=== PATIENT | female | born 1985 | race American Indian/Alaskan Native ===

== ENCOUNTER 2016-08-09 21:17 | Emergency (ER) | payer MEDICAID ==
--- NOTE | 2016-08-09 21:25 | EDM.PDOC ---
ED HPI LOWER BACK PAIN/INJURY - General Chief Complaint: Back Pain or Injury Stated Complaint: Back and Hip Pain Time Seen by Provider: 08/09/16 21:18 Source of Information: Reports: Patient, RN History Limitations: Reports: No limitations - History of Present Illness INITIAL COMMENTS - FREE TEXT/NARRATIVE: Patient presents the emergency room at [facility] complaining of low back pain and bilateral hip pain. The patient states her symptoms began 2 days ago. The patient denies any injuries/trauma. The patient denies any recent surgeries. The patient states she has been having irregular periods. The patient denies any UTI symptoms. The patient does not have any significant lower back history. The patient states that both her legs will go numb at times. Patient denies any significant trouble with ambulation. The patient states the pain is constant no matter what position she is in. The patient states her low back pain begins around T9 extending to S1. Patient denies any true sciatic pain. Symptom Onset Date: 08/07/16 Timing/Duration: Reports: Getting worse Location: Reports: lower, midline, radiating pain Quality: Reports: Sharp, Throbbing Severity: moderate Improves with: Reports: Rest Worsens with: Reports: Movement Context: Denies: lifting, bending, fall, trauma Associated Symptoms: Reports: Denies symptoms - Related Data Allergies/ADRs: Allergies Allergy/AdvReac Type Severity Reaction Status Date / Time codeine Allergy Nausea and Verified 08/09/16 22:35 Vomiting Home Meds: Home Meds hydrOXYzine Pamoate [Vistaril] 1 tab PO ASDIRECTED PRN 06/14/16 [History] buPROPion HCl [Wellbutrin Xl] 300 mg PO DAILY 08/09/16 [History] Past Medical History HEENT History: Reports: Other (see below) Other HEENT History: Recent influenza Respiratory History: Reports: Other (see below) Other Respiratory History: Recent Influenza A Gastrointestinal History: Reports: Chronic constipation Psychiatric History: Reports: Suicide attempt Endocrine/Metabolic History: Reports: Obesity/BMI 30+ Dermatologic History: Reports: Other (see below) Other Dermatologic History: Sores, boils treated with antibiotics. Social & Family History - Family History Family Medical History: Noncontributory - Tobacco Use Smoking Status *Q: Current Every Day Smoker Years of Tobacco use: 15 Packs/Tins Daily: 0.3 Used Tobacco, but Quit: Yes Month Tobacco Last Used: march? 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 Denies: Dizziness, Headache, Paresthesia, Tingling ED EXAM,LOWER BACK PAIN/INJURY - Physical Exam Exam: See Below Exam Limited By: No limitations General Appearance: alert, no apparent distress Respiratory/Chest: no respiratory distress, lungs clear, normal breath sounds Cardiovascular: regular rate, rhythm GI/Abdominal: normal bowel sounds, soft, non tender Back Exam: normal inspection, decreased range of motion, muscle spasm, paraspinal tenderness Extremities: limited range of motion (due to pain) Neurological: alert, normal reflexes, oriented x 3 Skin Exam: Warm, Dry, Intact, Normal color, No rash Course - Vital Signs Last Recorded V/S: Last Vital Signs Temp 36.2 C 08/09/16 21:45 Pulse 75 08/09/16 21:45 Resp 16 08/09/16 21:45 BP 142/77 H 08/09/16 21:45 Pulse Ox 97 08/09/16 21:45 - Orders/Labs/Meds Orders: Active Orders 24 hr Category Date Time Status Lumbar Spine wo Cont [CT] Stat Exams 08/09/16 22:04 Taken Pelvis wo Cont [CT] Stat Exams 08/09/16 22:04 Taken CARBOXY-THC BY GC/MS Stat Lab 08/09/16 21:51 Received Cyclobenzaprine [Take Home: Cyclobenzaprine 10 MG, 4 Med 08/09/16 23:21 Once Tab Pack] 1 packet PO ONETIME ONE Sodium Chloride 0.9% [Saline Flush] Med 08/09/16 21:48 Active 10 ml FLUSH ASDIRECTED PRN Peripheral IV Insertion Adult [OM.PC] Routine Oth 08/09/16 21:48 Ordered Medication Orders Sodium Chloride (Saline Flush) 10 ml FLUSH ASDIRECTED PRN PRN Reason: Keep Vein Open Labs: Laboratory Tests 08/09/16 08/09/16 08/09/16 Range/Units 21:51 21:51 21:51 Urine Color Yellow (YELLOW) Urine Appearance Clear (CLEAR) Urine pH 7.0 (5.0-8.0) Ur Specific Hershey 1.025 Urine Protein 100 H (NEGATIVE) mg/dL Urine Glucose (UA) Negative (NEGATIVE) mg/dL Urine Ketones Negative (NEGATIVE) mg/dL Urine Occult Blood Trace-intact H (NEGATIVE) Urine Nitrite Negative (NEGATIVE) Urine Bilirubin Negative (NEGATIVE) Urine Urobilinogen 1.0 (0.2) EU/dL Ur Leukocyte Esterase Small H (NEGATIVE) Urine RBC 5-10 H (NOT SEEN) /HPF Urine WBC 0-5 (NOT SEEN) /HPF Ur Squamous Epith Cells Moderate H (NEGATIVE) /HPF Urine Bacteria Moderate H (NEGATIVE) /HPF Urine Mucus Not seen (NEGATIVE) /LPF Urine HCG, Qual Negative (NEGATIVE) Urine Opiates Screen Negative (NEGATIVE) Ur Buprenorphine Scrn Negative (NEGATIVE) Ur Oxycodone Screen Negative (NEGATIVE) Urine Methadone Screen Negative (NEGATIVE) Ur Barbiturates Screen Negative (NEGATIVE) Ur Tricyclics Screen Negative (NEGATIVE) Ur Amphetamine Screen Negative (NEGATIVE) U Methamphetamines Scrn Negative (NEGATIVE) Urine MDMA Screen Negative (NEGATIVE) U Benzodiazepines Scrn Negative (NEGATIVE) U Cocaine Metab Screen Negative (NEGATIVE) U Marijuana (THC) Screen Positive H (NEGATIVE) Meds: Medications Generic Name Dose Route Start Last Admin Trade Name Freq PRN Reason Stop Dose Admin Sodium Chloride 10 ml 08/09/16 21:48 Saline Flush FLUSH ASDIRECTED PRN Keep Vein Open Discontinued Medications Generic Name Dose Route Start Last Admin Trade Name Freq PRN Reason Stop Dose Admin Ketorolac Tromethamine 30 mg 08/09/16 22:14 08/09/16 22:44 Toradol IVPUSH 08/09/16 22:15 30 mg ONETIME ONE Administration Ondansetron HCl 4 mg 08/09/16 22:46 08/09/16 22:59 Zofran IVPUSH 08/09/16 22:47 4 mg ONETIME ONE Administration Orphenadrine Citrate 60 mg 08/09/16 22:15 08/09/16 22:45 Norflex IM 08/09/16 22:16 60 mg Q12H ONE Administration - Radiology Interpretation Free Text/Narrative:: CT of Lumbar Spine is normal - see scanned report CT of Pelvis does not show any fracture or dislocation; probable benign or functional ovarian cyst on the left; Normal appearing appendix CT Results Date: 08/09/16 CT Results Time: 22:49 Departure - Departure Time of Disposition: 23:21 Disposition: Home, Self-Care 01 Condition: good Clinical Impression: Muscle spasm of back Instructions: Muscle Strain, [id number], Back Injury Prevention, [id number] , Muscle Cramps and Spasms, [id number] Referrals: Scar Geiger PRINTING MACHINE OPERATOR [Primary Care Provider] - Forms: ED Department Discharge Additional Instructions: 1. Stay well hydrated and rest 2. Take muscle relaxants only as needed; they can make you drowsy 3. May alternate Tylenol/Advil as needed 4. Will schedule Physical therapy at [facility] - Problem List Review Problem List Initiated/Reviewed/Updated: Yes - My Orders Last 24 Hours: My Active Orders 08/09/16 21:48 Sodium Chloride 0.9% [Saline Flush] 10 ml FLUSH ASDIRECTED PRN Peripheral IV Insertion Adult [OM.PC] Routine 08/09/16 21:51 CARBOXY-THC BY GC/MS Stat 08/09/16 22:04 Lumbar Spine wo Cont [CT] Stat Pelvis wo Cont [CT] Stat 08/09/16 23:21 Cyclobenzaprine [Take Home: Cyclobenzaprine 10 MG, 4 Tab Pack] 1 packet PO ONETIME ONE - Assessment/Plan Last 24 Hours: My Active Orders 08/09/16 21:48 Sodium Chloride 0.9% [Saline Flush] 10 ml FLUSH ASDIRECTED PRN Peripheral IV Insertion Adult [OM.PC] Routine 08/09/16 21:51 CARBOXY-THC BY GC/MS Stat 08/09/16 22:04 Lumbar Spine wo Cont [CT] Stat Pelvis wo Cont [CT] Stat 08/09/16 23:21 Cyclobenzaprine [Take Home: Cyclobenzaprine 10 MG, 4 Tab Pack] 1 packet PO ONETIME ONE
[2016-08-09] MEDS ORDERED: Sodium Chloride 0.9% 10 ML Syringe FLUSH PRN (21:48)
[2016-08-09] MEDS ORDERED: Ketorolac 30 MG/ML SDV IVPUSH ONE (22:14)
[2016-08-09] MEDS ORDERED: Ondansetron 4 MG/2 ML SDV IVPUSH ONE (22:46)
[2016-08-09 22:52] VITALS: BP 142/77
[2016-08-09] MEDS ORDERED: Take Home: Cyclobenzaprine 10 MG Tab, 4 Tab Pack PO ONE (23:21)
== END 2016-08-09 23:38 | disposition home or self-care (01) ==
LOC: VM.ED 21:17
DX: M62.830 Muscle spasm of back (principal); E66.9 Obesity, unspecified; F17.210 Nicotine dependence, cigarettes, uncomplicated; Z88.5 Allergy status to narcotic agent; Z79.899 Other long term (current) drug therapy
CPT/HCPCS: 72131; 72192; 80305; 80349; 81001; 81025; 96372; 96374; 96375; 99284; A9270; J1885; J2360; J2405

== ENCOUNTER 2016-12-06 23:30 | Emergency (ER) | payer MEDICAID ==
[2016-12-06 23:38] VITALS: BP 143/86
[2016-12-06] MEDS ORDERED: Amoxicillin 500 MG Cap PO ONE (23:39)
--- NOTE | 2016-12-06 23:47 | EDM.PDOC ---
ED HPI GENERAL MEDICAL PROBLEM - General Chief Complaint: General Stated Complaint: RIGHT EAR PLUGGED Time Seen by Provider: 12/06/16 23:38 Source of Information: Reports: Patient History Limitations: Reports: No Limitations - History of Present Illness INITIAL COMMENTS - FREE TEXT/NARRATIVE: Astrid reports having a cough and sinus congestion for two weeks. Was seen at the clinic over the weekend and not given any medications. She is here tonight with complaints of not being able to hear out of her right ear. She reports this started two days ago. Still with cough and nasal congestion. She denies smoking every day but does smoke on occasion. She is 16 weeks . She denies fever, SOB, chest pain, no nausea, vomiting. No ear pain. Having regular voiding and bowel habits. No complaints with . Is tired. Onset: Gradual Duration: Getting Worse Location: Reports: Face, Other (right ear) Quality: Reports: Pressure Severity: Moderate Associated Symptoms: Reports: Cough, cough w sputum - Related Data Allergies Allergy/AdvReac Type Severity Reaction Status Date / Time codeine Allergy Nausea and Verified 12/06/16 23:39 Vomiting Home Meds: Home Meds hydrOXYzine Pamoate [Vistaril] 1 tab PO ASDIRECTED PRN 06/14/16 [History] buPROPion HCl [Wellbutrin Xl] 300 mg PO DAILY 08/09/16 [History] Past Medical History HEENT History: Reports: Other (See Below) Other HEENT History: Recent influenza Respiratory History: Reports: Other (See Below) Other Respiratory History: Recent Influenza A Gastrointestinal History: Reports: Chronic Constipation Psychiatric History: Reports: Suicide Attempt Endocrine/Metabolic History: Reports: Obesity/BMI 30+ Dermatologic History: Reports: Other (See Below) Other Dermatologic History: Sores, boils treated with antibiotics. Social & Family History - Family History Family Medical History: Noncontributory - Tobacco Use Smoking Status *Q: Current Every Day Smoker Years of Tobacco use: 15 Packs/Tins Daily: 0.3 Used Tobacco, but Quit: Yes Month Tobacco Last Used: march? Second Hand Smoke Exposure: Yes - Caffeine Use Caffeine Use: Reports: Soda Other Caffeine Use: daily - Alcohol Use Days Per Week of Alcohol Use: 0 Number of Drinks Per Day: 0 Total Drinks Per Week: 0 - Recreational Drug Use Recreational Drug Use: Yes Drug Use in Last 12 Months: Yes Recreational Drug Type: Reports: Marijuana/Hashish Recreational Drug Use Frequency: Daily - Living Situation & Occupation Occupation: Employed ED ROS GENERAL - Review of Systems Review Of Systems: See Below Constitutional: Reports: No Symptoms, Other (tired) HEENT: Reports: Throat Pain, Other (can't hear out of right ear) Respiratory: Reports: Cough, Sputum Cardiovascular: Reports: No Symptoms Endocrine: Reports: No Symptoms GI/Abdominal: Reports: No Symptoms : Reports: No Symptoms Musculoskeletal: Reports: Neck Pain Skin: Reports: No Symptoms Neurological: Reports: No Symptoms Psychiatric: Reports: No Symptoms Hematologic/Lymphatic: Reports: No Symptoms Immunologic: Reports: No Symptoms ED EXAM, GENERAL - Physical Exam Exam: See Below Exam Limited By: No Limitations General Appearance: Alert, WD/WN, No Apparent Distress Eye Exam: Bilateral Eye: EOMI, PERRL Ears: Hearing Loss (right ear). No: Normal TMs Ear Exam: Right Ear: Erythema, Swelling, Other (fluid posterior to TM), Left Ear : TM normal Throat/Mouth: Normal Inspection, Normal Oropharynx Head: Atraumatic, Facial Tenderness, Sinus Tenderness Neck: Lymphadenopathy (L), Lymphadenopathy (R), Tender Lateral Respiratory/Chest: No Respiratory Distress, Lungs Clear, Normal Breath Sounds, No Accessory Muscle Use Cardiovascular: Normal Peripheral Pulses, Regular Rate, Rhythm, No Murmur GI/Abdominal: Normal Bowel Sounds, Soft, Non-Tender Extremities: Normal Inspection, Normal Range of Motion, Non-Tender, No Pedal Edema, Normal Capillary Refill Neurological: Alert, Oriented, CN II-XII Intact, Normal Cognition, Normal Gait, Normal Reflexes, No Motor/Sensory Deficits Psychiatric: Normal Affect, Normal Mood Skin Exam: Warm, Dry, Intact, Normal Color, No Rash Lymphatic: Adenopathy (bilateral cervical) Course - Vital Signs Last Recorded V/S: Last Vital Signs Temp 35.9 C 12/06/16 23:33 Pulse 80 12/06/16 23:33 Resp 18 12/06/16 23:33 BP 143/86 H 12/06/16 23:33 Pulse Ox 98 12/06/16 23:33 - Re-Assessments/Exams Free Text/Narrative Re-Assessment/Exam: 12/06/16 23:56 extended respiratory illness extending into right ear with fluid causing lowered hearing. Amoxicillin prescribed. Recommended Zyrtec for 2nd generation antihistamine for relative safety profile while she is . Departure - Departure Time of Disposition: 23:58 Disposition: Home, Self-Care 01 Condition: Good Clinical Impression: Bronchitis, Cough in adult, Otitis media of right ear - Discharge Information Instructions: Smoking Cessation, Tips for Success, [id number], Serous Otitis Media Forms: ED Department Discharge Additional Instructions: Stay well hydrated. You can take over the counter Zyrtec to help with the fluid behind your ears. It may take several weeks for the fluid to resolve You can take tylenol for any pain Your eardrum is not punctured, however it is red and there is fluid behind it. Take the amoxicillin as prescribed and finish the entire dose even if you feel better. If you have not stopped smoking you should for the health of both yourself and your unborn child. Follow up with your primary provider with any additional symptoms Call us with any questions or concerns - Problem List & Annotations (1) Bronchitis SNOMED Code(s): 17368138 Code(s): J40 - BRONCHITIS, NOT SPECIFIED ACUTE OR CHRONIC Status: Acute Priority: Low (2) Cough in adult SNOMED Code(s): 92969985 Code(s): R05 - COUGH Status: Acute Priority: Low (3) Otitis media of right ear SNOMED Code(s): 54273044 Code(s): H66.91 - OTITIS MEDIA, UNSPECIFIED, RIGHT EAR Status: Acute Priority: Low Qualifiers: Otitis media type: suppurative Chronicity: acute Recurrence: not specified as recurrent Spontaneous tympanic membrane rupture: without spontaneous rupture Qualified Code(s): H66.001 - Acute suppurative otitis media without spontaneous rupture of ear drum, right ear - Problem List Review Problem List Initiated/Reviewed/Updated: Yes - Assessment/Plan Assessment:: Acute right otitis media bronchitis greater than 10 day duration Plan: Stay well hydrated. You can take over the counter Zyrtec to help with the fluid behind your ears. It may take several weeks for the fluid to resolve You can take tylenol for any pain Your eardrum is not punctured, however it is red and there is fluid behind it. Take the amoxicillin as prescribed and finish the entire dose even if you feel better. If you have not stopped smoking you should for the health of both yourself and your unborn child. Follow up with your primary provider with any additional symptoms Call us with any questions or concerns
== END 2016-12-06 23:53 | disposition home or self-care (01) ==
LOC: VM.ED 23:30
DX: J40 Bronchitis, not specified as acute or chronic (principal); H66.91 Otitis media, unspecified, right ear; E66.9 Obesity, unspecified; F17.210 Nicotine dependence, cigarettes, uncomplicated; Z79.899 Other long term (current) drug therapy; Z88.5 Allergy status to narcotic agent
CPT/HCPCS: 99283; A9270

== ENCOUNTER 2016-12-15 04:32 | Emergency (ER) | payer MEDICAID ==
[2016-12-15] MEDS ORDERED: Benzonatate 100 MG Cap ONE (04:59)
[2016-12-15] MEDS ORDERED: Albuterol 8 GM Inhaler INH ONE (04:59)
--- NOTE | 2016-12-16 08:37 | ER ---
Date of Service: 12/15/2016 SUBJECTIVE: Astrid presents to the emergency room with complaints of cough and chest congestion. She is currently being treated for what sounds like bronchitis and is on amoxicillin for this. She states that she is approximately 17 weeks' gestation and so she is not able to take much in the way of medications to help with her cough. She states that she does not have any history of asthma or chronic respiratory illnesses. PAST MEDICAL HISTORY: 1. Currently 17 weeks' gestation. 2. Current treatment for bronchitis. MEDICATIONS: 1. vitamin. 2. Calcium carbonate. ALLERGIES: Codeine. REVIEW OF SYSTEMS: General: No fever or chills. HEENT: Positive for sore throat, rhinorrhea, and congestion. Respiratory: Positive for cough. No significant shortness of breath. Cardiac: Denies any substernal chest pain. No jaw, arm, neck, or back pain. Gastrointestinal: No nausea, vomiting, or diarrhea. No melena, hematochezia, or hematemesis. Genitourinary: Denies any dysuria. Musculoskeletal: No myalgias or arthralgias. Neurologic: No fainting, blackouts, or lightheadedness. PHYSICAL EXAMINATION: General: This is a 31-year-old female patient, who is in no acute distress. Vital Signs: Please see nurse's notes. Skin: Warm, pink, and dry. HEENT: Head is normocephalic and atraumatic. Eyes; PERRLA. Extraocular movements are intact. Mouth; oral mucosa is moist. Ears; TMs are clear. Lungs: Clear to auscultation. Heart: Regular rate and rhythm. Abdomen: Soft, nontender. There is no hepatosplenomegaly noted. There are no masses noted. Extremities: Without edema. Neurologic: The patient is alert and oriented. Answers all questions appropriately. Her speech is fluent. Her gait is within normal limits. ASSESSMENT: Acute bronchitis. PLAN: Continue with the amoxicillin. I did prescribe her an albuterol inhaler with instructions to take 2 puffs every 4 to 6 hours as needed for cough. We will have her follow up with SKIP OPERATOR in the next 5 to 7 days, sooner for cough is becoming worse or she develops any difficulties in breathing. All questions were answered. MWK: 12/15/2016 12:24:52 MODL: 12/15/2016 20:24:44 /[id number]
== END 2016-12-15 05:00 | disposition home or self-care (01) ==
LOC: VM.ED 04:32
DX: O99.512 Diseases of the respiratory system complicating pregnancy, second trimester (principal); J20.9 Acute bronchitis, unspecified; Z3A.17 17 weeks gestation of pregnancy; Z88.5 Allergy status to narcotic agent
CPT/HCPCS: 99283; A9270-GY

== ENCOUNTER 2019-01-19 21:09 | Emergency (ER) | payer MEDICAID ==
--- NOTE | 2019-01-19 22:03 | EDM.PDOC ---
ED HPI GENERAL MEDICAL PROBLEM - General Chief Complaint: Abdominal Pain Stated Complaint: abd pain Time Seen by Provider: 01/19/19 21:20 Source of Information: Reports: Patient History Limitations: Reports: No Limitations - History of Present Illness INITIAL COMMENTS - FREE TEXT/NARRATIVE: Patient comes into the emergency department with complaint of left lower quadrant abdominal pain. Patient states that the pain started approximately 2 weeks ago. She states that it started in her left lower abdomen. She describes as a cramping sensation at times. And then a sharpshooting sensation at other times. She states that she has had normal bowel movements. Denies any nausea, vomiting, increased redness, swelling, distention, shortness of breath, chest pain or peripheral edema. Patient states that it has not gotten any worse since 2 weeks ago. It does intermittently get better especially after eating a bowel movement. Denies any new sexual partners. She also denies any foul-smelling discharge, urgency, frequency or hesitancy. Onset: Gradual Location: Reports: Abdomen Quality: Reports: Ache, Other (cramping ) Improves with: Reports: None Worsens with: Reports: None Associated Symptoms: Reports: No Other Symptoms Mid-left lower quadrant pain Pain Score (Numeric/FACES): 6 - Related Data Allergies Allergy/AdvReac Type Severity Reaction Status Date / Time codeine Allergy Nausea and Verified 01/19/18 13:44 Vomiting Home Meds: Home Meds . [No Known Home Meds] 01/19/18 [History] Past Medical History HEENT History: Reports: Other (See Below) Other HEENT History: Recent influenza Respiratory History: Reports: Other (See Below) Other Respiratory History: Recent Influenza A Gastrointestinal History: Reports: Chronic Constipation Psychiatric History: Reports: Suicide Attempt Endocrine/Metabolic History: Reports: Obesity/BMI 30+ Dermatologic History: Reports: Other (See Below) Other Dermatologic History: Sores, boils treated with antibiotics. - Infectious Disease History Infectious Disease History: Reports: Influenza - Past Surgical History GI Surgical History: Reports: Cholecystectomy Social & Family History - Family History Family Medical History: Noncontributory - Caffeine Use Caffeine Use: Reports: Soda Other Caffeine Use: daily - Living Situation & Occupation Occupation: Employed ED ROS GENERAL - Review of Systems Review Of Systems: See Below Constitutional: Reports: No Symptoms HEENT: Reports: No Symptoms Respiratory: Reports: No Symptoms Cardiovascular: Reports: No Symptoms Endocrine: Reports: No Symptoms GI/Abdominal: Reports: Abdominal Pain. Denies: Black Stool, Bloody Stool, Constipation, Decreased Appetite, Difficulty Swallowing, Distension, Flatus, Hematemesis, Hematochezia, Mucous in Stool, Nausea, Stool Incontinence : Reports: No Symptoms Musculoskeletal: Reports: No Symptoms Skin: Reports: No Symptoms Neurological: Reports: No Symptoms Psychiatric: Reports: No Symptoms Hematologic/Lymphatic: Reports: No Symptoms Immunologic: Reports: No Symptoms ED EXAM, GENERAL - Physical Exam Exam: See Below Exam Limited By: No Limitations General Appearance: Alert, WD/WN, No Apparent Distress Neck: Normal Inspection, Supple, Non-Tender, Full Range of Motion Respiratory/Chest: No Respiratory Distress, Lungs Clear, Normal Breath Sounds, No Accessory Muscle Use, Chest Non-Tender Cardiovascular: Normal Peripheral Pulses, Regular Rate, Rhythm, No Edema GI/Abdominal: Normal Bowel Sounds, Soft, Tender (Left lower quadrant on deep palpation ). No: Distended, Guarding, Rigid, Rebound, Hernia, Mass, Hepatomegaly Back Exam: Normal Inspection, Full Range of Motion Extremities: Normal Inspection, Normal Range of Motion, No Pedal Edema, Normal Capillary Refill Neurological: Alert, Oriented Psychiatric: Normal Affect, Normal Mood Skin Exam: Warm, Dry, Intact, Normal Color Course - Vital Signs Last Recorded V/S: Last Vital Signs Temp 36.1 C 01/19/19 21:09 Pulse 71 01/19/19 21:09 Resp 16 01/19/19 21:09 BP 147/70 H 01/19/19 21:09 Pulse Ox - Orders/Labs/Meds Orders: Active Orders 24 hr Category Date Time Status Abdomen 2V AP Flat Upright [CR] Stat Exams 01/19/19 21:57 Taken - Re-Assessments/Exams Free Text/Narrative Re-Assessment/Exam: 01/19/19 22:29 resting, using her phone. Pt denies of any concerns or complaints and states she is ready for discharge. She understands her discharge instructions without any difficulty. Departure - Departure Time of Disposition: 22:30 Disposition: Home, Self-Care 01 Condition: Good Clinical Impression: Constipation Qualifiers: Constipation type: unspecified constipation type Qualified Code(s): K59.00 - Constipation, unspecified - Discharge Information *PRESCRIPTION DRUG MONITORING PROGRAM REVIEWED*: Not Applicable *COPY OF PRESCRIPTION DRUG MONITORING REPORT IN PATIENT TAWNYA: Not Applicable Instructions: Constipation, Adult, Polyethylene Glycol powder Forms: ED Department Discharge Additional Instructions: 1. increase your water intake 2. Can use a heating pad help with any cramping sensation 3. Use MiraLAX or milk of magnesia to help stimulate the bowels 4. Follow-up with primary care provider if symptoms progress or worsen 5. Activity and diet as tolerated 6. Call with any questions or concerns - My Orders Last 24 Hours: My Active Orders 01/19/19 21:57 Abdomen 2V AP Flat Upright [CR] Stat - Assessment/Plan Last 24 Hours: My Active Orders 01/19/19 21:57 Abdomen 2V AP Flat Upright [CR] Stat Assessment:: 1. Left lower quadrant abdominal pain Plan: 1. Abdominal xray results reviewed with the patient 2. Education regarding OTC use of Maalox or milk of magnesia to help stimulate the bowels. 3. Patient is encouraged to use MiraLAX on a daily basis until regularities continued with her bowels. 4. Patient is encouraged to use heating pads necessary for cramping 5. She is encouraged to return to the emergency department or follow-up with primary care provider symptoms worsen or progress. 6. All questions and concerns addressed prior to patient's discharge
[2019-01-19 22:14] VITALS: BP 147/70; PULSE 71
--- NOTE | 2019-01-20 07:13 | CR ---
[id number] RAD/RAD Abd Flat and Upright 2V EXAM: RAD Abd Flat and Upright 2V INDICATION: ABD PAIN COMPARISON: None. DISCUSSION: Unobstructed bowel gas pattern. No radiographically evident pneumoperitoneum. Gallbladder has been resected. IMPRESSION: No acute findings in the abdomen. Loy Bautista MD 01/20/19 0712 Thank you for allowing us to participate in the care of your patient.
== END 2019-01-19 22:35 | disposition home or self-care (01) ==
LOC: VM.ED 21:09
DX: K59.00 Constipation, unspecified (principal); E66.9 Obesity, unspecified; Z68.42 Body mass index [BMI] 45.0-49.9, adult; Z88.5 Allergy status to narcotic agent; Z90.49 Acquired absence of other specified parts of digestive tract
CPT/HCPCS: 74019; 99284-25

== ENCOUNTER 2019-06-14 13:55 | Emergency (ER) | payer MEDICAID, OTHER ==
[2019-06-14 14:19] LABS: CHLORIDE,CL 105 mmol/L (98-107); SODIUM,NA 141 mmol/L (136-145)
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
== END 2019-06-14 14:25 | disposition short-term general hospital (02) ==
LOC: VM.ED 13:55
DX: M62.81 Muscle weakness (generalized) (principal); G58.9 Mononeuropathy, unspecified; V89.2XXA Person injured in unspecified motor-vehicle accident, traffic, initial encounter; Z88.5 Allergy status to narcotic agent
CPT/HCPCS: 71045; 72170; 80048; 85025; 99285-25

== ENCOUNTER 2021-05-10 05:40 | Emergency (ER) | payer MEDICAID ==
[2021-05-10 06:17] VITALS: BP 147/97; PULSE 97
[2021-05-10] MEDS ORDERED: Sodium Chloride 0.9% 10 ML Syringe FLUSH PRN (06:22)
[2021-05-10 06:50] LABS: BARBITURATE SCREEN,URINE NEGATIVE (NEGATIVE); BENZODIAZEPINES SCREEN,URINE NEGATIVE (NEGATIVE); BUPRENORPHINE SCREEN,URINE NEGATIVE (NEGATIVE); METHAMPHETAMINE SCREEN, URINE POSITIVE (NEGATIVE); THC SCREEN,URINE 50 NG/ML NEGATIVE (NEGATIVE)
[2021-05-10] MEDS: Sodium Chloride 0.9% 1,000 ML IV ONE (06:50)
[2021-05-10] MEDS: Ondansetron 4 MG/2 ML SDV IVPUSH ONE (07:06)
[2021-05-10] MEDS: Famotidine 20 MG/2 ML SDV IVPUSH ONE (07:06)
[2021-05-10] MEDS: OLANZapine 10 MG Tab PO ONE (07:06)
[2021-05-10 07:15] LABS: CHLORIDE,CL 105 mmol/L (98-107); SODIUM,NA 140 mmol/L (136-145)
[2021-05-10 07:17] LABS: ANION GAP 10.3 mmol/L (5-15)
[2021-05-10 07:30] LABS: ACETAMINOPHEN 0 ug/ml (10-30)
== END 2021-05-10 07:50 | disposition home or self-care (01) ==
LOC: VM.ED 05:40
DX: F15.10 Other stimulant abuse, uncomplicated (principal); R44.3 Hallucinations, unspecified; E66.9 Obesity, unspecified; Z68.37 Body mass index [BMI] 37.0-37.9, adult; Z72.0 Tobacco use; Z88.5 Allergy status to narcotic agent; Z79.899 Other long term (current) drug therapy
CPT/HCPCS: 80053; 80143; 80179; 80305; 80307; 82550; 83690; 83735; 84443; 85025; 96374; 96375; 99285; A9270; J2405; J3490; J7030

== ENCOUNTER 2021-05-10 11:23 | Inpatient (IN) | payer MEDICAID ==
[2021-05-10] MEDS ORDERED: Ondansetron 4 MG/2 ML SDV IV PRN (12:57)
[2021-05-10] MEDS ORDERED: Haloperidol Lactate 5 MG/ML SDV IV PRN (13:02)
[2021-05-10 13:55] LABS: CHLORIDE,CL 105 mmol/L (98-107); SODIUM,NA 142 mmol/L (136-145)
[2021-05-10 13:57] LABS: ANION GAP 12.5 mmol/L (5-15)
[2021-05-10 14:46] LABS: BARBITURATE SCREEN,URINE NEGATIVE (NEGATIVE); BENZODIAZEPINES SCREEN,URINE NEGATIVE (NEGATIVE); BUPRENORPHINE SCREEN,URINE NEGATIVE (NEGATIVE)
[2021-05-10 14:47] LABS: METHAMPHETAMINE SCREEN, URINE POSITIVE (NEGATIVE); THC SCREEN,URINE 50 NG/ML NEGATIVE (NEGATIVE)
[2021-05-10] MEDS: Sodium Chloride 0.9% 1,000 ML IV SCH ×2 (14:53→21:31)
[2021-05-11] MEDS: Sodium Chloride 0.9% 1,000 ML IV SCH (04:14)
[2021-05-11 07:17] LABS: CHLORIDE,CL 106 mmol/L (98-107); SODIUM,NA 140 mmol/L (136-145)
[2021-05-11 07:21] LABS: ANION GAP 10.5 mmol/L (5-15)
[2021-05-11 14:07] LABS: C.TRACHOMATIS BY TMA Negative (Negative)
[2021-05-11] MEDS ORDERED: cefTRIAXone 2 GM Vial IM STA (15:53)
[2021-05-11] MEDS ORDERED: Azithromycin 250 MG Tab PO STA (16:01)
[2021-05-12 10:11] VITALS: BP 135/88; PULSE 68
[2021-05-13 10:23] LABS: N.GONORRHOEAE BY TMA Positive (Negative)
== END 2021-05-12 15:00 | disposition home or self-care (01) | DRG 897 ==
LOC: VM.MS 12:16
PROVIDERS: ADMIT Nurse Practitioner Family; ATTEND Nurse Practitioner Family
DX: F15.10 Other stimulant abuse, uncomplicated (principal); F43.12 Post-traumatic stress disorder, chronic; R53.83 Other fatigue; F32.9 Major depressive disorder, single episode, unspecified; F41.1 Generalized anxiety disorder; F60.3 Borderline personality disorder; Z20.2 Contact with and (suspected) exposure to infections with a predominantly sexual mode of transmission; Z98.890 Other specified postprocedural states; Z88.8 Allergy status to other drugs, medicaments and biological substances
CPT/HCPCS: 36415; 80053; 80074; 80143; 80179; 80305-QW; 81001; 81025; 82550; 83735; 84100; 85025; 86592; 87210; 87389; 87491; 87529; 87591; A9270-GY; J0696; J2405; J7030

== ENCOUNTER 2021-05-24 16:18 | Emergency (ER) | payer MEDICAID ==
[2021-05-24] MEDS ORDERED: Sodium Chloride 0.9% 10 ML Syringe FLUSH PRN (16:26)
[2021-05-24 16:53] LABS: PTT,PARTIAL THROMBOPLSTIN TIME 25.9 SEC (25.6-32.8)
[2021-05-24 17:04] LABS: CHLORIDE,CL 106 mmol/L (98-107); SODIUM,NA 140 mmol/L (136-145)
[2021-05-24 17:05] LABS: ACETAMINOPHEN 0 ug/ml (10-30); ANION GAP 13.1 mmol/L (5-15)
[2021-05-24 17:19] LABS: BARBITURATE SCREEN,URINE NEGATIVE (NEGATIVE); BENZODIAZEPINES SCREEN,URINE NEGATIVE (NEGATIVE); METHAMPHETAMINE SCREEN, URINE NEGATIVE (NEGATIVE); THC SCREEN,URINE 50 NG/ML NEGATIVE (NEGATIVE)
[2021-05-24 17:20] LABS: BUPRENORPHINE SCREEN,URINE POSITIVE (NEGATIVE)
[2021-05-24 19:00] VITALS: BP 168/100; PULSE 89
== END 2021-05-24 19:27 | disposition home or self-care (01) ==
LOC: VM.ED 16:18
DX: T43.022A Poisoning by tetracyclic antidepressants, intentional self-harm, initial encounter (principal); F32.A Depression, unspecified; E66.9 Obesity, unspecified; Z68.41 Body mass index [BMI] 40.0-44.9, adult; Z72.0 Tobacco use; Z88.5 Allergy status to narcotic agent; Z79.899 Other long term (current) drug therapy; Z20.822 Contact with and (suspected) exposure to COVID-19
CPT/HCPCS: 80053; 80143; 80305-QW; 80307; 81001; 81025; 83735; 84100; 84443; 85025; 85610; 85730; 86140; 87086; 93005; 99284; 99285-25; U0002

== ENCOUNTER 2021-12-18 11:17 | Emergency (ER) | payer MEDICAID ==
[2021-12-18] MEDS ORDERED: Loratadine 10 MG Tab PO ONE (11:58)
[2021-12-18] MEDS ORDERED: Famotidine 20 MG Tab PO ONE (11:59)
[2021-12-18 12:41] LABS: ANION GAP 12.4 mmol/L (5-15); CHLORIDE,CL 104 mmol/L (98-107); ESTIMATED GFR 76 mL/min (>=60); SODIUM,NA 140 mmol/L (136-145)
== END 2021-12-18 12:54 | disposition home or self-care (01) ==
LOC: VM.ED 11:17
DX: L50.9 Urticaria, unspecified (principal); E66.9 Obesity, unspecified; Z68.30 Body mass index [BMI] 30.0-30.9, adult; Z88.6 Allergy status to analgesic agent; Z79.899 Other long term (current) drug therapy; Z90.49 Acquired absence of other specified parts of digestive tract
CPT/HCPCS: 36415; 80053; 85025; 99283; A9270-GY